=== PATIENT | male | born 1960 | race African-American/Black ===

== ENCOUNTER 2019-10-02 08:05 | Day surgery (SDC) | payer OTHER ==
[~2019-10-02] VITALS: Ht 172.7 cm; Wt 100.6 kg
[2019-10-02] VITALS (7 sets, daily range): BP systolic 126–151; BP diastolic 77–101
[~2019-10-02 08:05] MED LIST: ACET-2119 PO; ATOR10TA87 PO; GLU850T PO; HYDR25TA4 PO; INSU100V30 SQ; LANTUS SQ; LEVA15HF4 INH; LOSA25TA96 PO; RANI150T8 PO; TRAM50TA2 PO; XAL0.005OS OP; cefazolin/dext.iso 2gm/100ml 100 ML IV ONE; famotidine 10mg tablet PO ONE; ringers solution, lacted 1,000 ML IV SCH
[2019-10-02] MEDS ORDERED: LIDOcaine 1% (10mg/ml) 2ml vial ONE (09:24)
[2019-10-02] MEDS ORDERED: fentaNYL/PF 50MCG/1 ML 2ML syringe ONE (10:04)
[2019-10-02] MEDS ORDERED: midazolam 2 mg/2 ml injection ONE ×2 (10:04)
[2019-10-02] MEDS ORDERED: ROPIVAcaine 0.5% (5mg/ml) 30ml vial ONE (10:12)
[2019-10-02] MEDS ORDERED: LIDOcaine 1%/PF 5ML 10 MG/ML VIAL ONE (10:12)
[2019-10-02] MEDS ORDERED: propofol inj 20 ML IV ONE (10:12)
[2019-10-02] MEDS ORDERED: epiNEPHrine 1 mg/ml inj ONE (10:45)
[2019-10-02] MEDS ORDERED: sevoflurane 250ml liquid IH ONE (10:46)
[2019-10-02] MEDS ORDERED: ringers solution, lacted 1,000 ML IV SCH (11:49)
[2019-10-02] MEDS ORDERED: morphine 4 MG/ML inj SYRINge IV PRN ×2 (11:50)
[2019-10-02] MEDS ORDERED: meperidine/PF 25mg/ml syringe IV PRN ×3 (11:50)
[2019-10-02] MEDS ORDERED: ondansetron/PF 4mg/2ml inj IV PRN (11:50)
[2019-10-02] MEDS ORDERED: proCHLORperazine 10 MG/2 ml inj IV PRN (11:50)
[2019-10-02] MEDS ORDERED: ondansetron/PF 4mg/2ml inj ONE (12:04)
[2019-10-02] MEDS ORDERED: ePHEDrine 50MG/ML INJ. ONE (12:04)
[2019-10-02] MEDS ORDERED: BUPIVAcaine/PF 2.5mg/ml (0.25%) 10ml vial ONE (12:06)
--- NOTE | 2019-10-02 12:35 | NUR ---
Received from OR via [facility] , accompanied by Anesthesiologist CALDERON and report given by Anesthesiolgist. PATIENT WITH 20G PIV IN LEFT UE RUNNING LR AT 100. DENIES PAIN. VSS. 10L MASK ON WITH 100% SATURATIONS. RIGHT ANTERIOR SHOULDER WRAP WITH POWDER PACK IN PLACE. + RADIAL PULSE PRESENT. SLING IN PLACE. NO DRAINAGE PRESENT TO DRESSING. 2 GAURDS PRESENT WITH PATIENT Addendum: 10/02/19 at 1240 by Jose Arellano RN RN Amended: Links added.
[2019-10-02] MEDS ORDERED: HYDROcodone/acetaminophen 10/325mg tab PO ONE (13:10)
--- NOTE | 2019-10-02 13:18 | NUR ---
ALL DC CRITERIA HAS BEEN MET. IV TAKEN OUT WITHOUT COMPLICATIONS. ALL INSTRUCTIONS COVERED AND ALL QUESTIONS ANSWERED. DRESSINGS CDI. OUT VIA WHEELCHAIR TO SECURE [facility] VEHICLE WHERE PATIENT WAS SECURED IN AND DRIVEN BACK TO THE FACILITY BY GUARDS. VSS. MEDICATED FOR PAIN PRIOR TO DC. SLING ON, SPRING DRESSED PATIENT. Addendum: 10/02/19 at 1330 by Jose Arellano RN, RN Amended: Links added.
== END 2019-10-02 13:18 ==
LOC: PAS 08:05 → EEVIPCON 12:45 → PAS 13:18
PROVIDERS: ATTEND Orthopaedic Surgery
DX: S43.431A Superior glenoid labrum lesion of right shoulder, initial encounter (principal); M75.41 Impingement syndrome of right shoulder; M19.011 Primary osteoarthritis, right shoulder; M65.811 Other synovitis and tenosynovitis, right shoulder; J44.9 Chronic obstructive pulmonary disease, unspecified; I10 Essential (primary) hypertension; E11.9 Type 2 diabetes mellitus without complications; Z98.890 Other specified postprocedural states; G89.18 Other acute postprocedural pain; X58.XXXA Exposure to other specified factors, initial encounter; Y93.89 Activity, other specified; Y92.89 Other specified places as the place of occurrence of the external cause; Y99.8 Other external cause status
CPT/HCPCS: 29822; 29824; 29826; 64415; 82948; 93005; J0171; J2001; J2250; J2405; J2704; J3010; J3490; A4215; A4565; A4618; A6258; A7000; J2795; J7120